=== PATIENT | female | born 1980 | race Hispanic/Latino ===

== ENCOUNTER 2021-04-29 13:55 | Emergency (ER) | payer MEDICAID ==
[~2021-04-29] VITALS: Ht 144.8 cm; Wt 76.0 kg
[~2021-04-29 13:55] MED LIST: LORTAB5 PO; NO HOME MEDS
[2021-04-29 15:30] VITALS: BP 137/79
== END 2021-04-29 15:20 | disposition home or self-care (01) ==
LOC: ED 13:55
DX: R10.33 Periumbilical pain (principal)